=== PATIENT | male | born 1985 | race Caucasian/White ===

== ENCOUNTER 2017-07-17 18:10 | Emergency (ER) | payer OTHER, MEDICAID ==
[~2017-07-17] VITALS: Ht 172.7 cm; Wt 95.3 kg
[~2017-07-17 18:10] MED LIST: METO50TA69 PO; [UNRECOGNIZED DRUG - CODE] PO
[2017-07-17 18:30] VITALS: BP 148/92
--- NOTE | 2017-07-17 18:45 | NUR ---
Patient was taken to bed 03 via wheelchair per tech.
--- NOTE | 2017-07-17 18:56 | NUR ---
PATIENT PRESENTS TO THE ED C/O RIGHT HIP PAIN. PT STATES, "I GOT UP TO WALK AND IT STARTED TO HURT." PT STATES OF A SHARP PAIN THAT RADIATES DOWN THE LEG, STATES A 6/10. PT STATES THAT STARTED X4 HOURS AGO. REPORTED DIARRHEA SYMPTOMS LAST NIGHT. PATIENT REPORTS PAST MEDICAL HISTORY OF HYPERTENSION AND IS CURRENTLY ON DIALYSIS. PATIENT AAOX4, RR EVEN AND UNLABORED. PATIENT REPOSITIONED FOR COMFORT. BED PUT IN LOWEST POSITION. ER MD DR. BYNUM NOTIFIED. WILL CONTINUE TO MONITOR.
--- NOTE | 2017-07-17 19:15 | NUR ---
Pt report given to CLARICE BRANDON. Transfer of care at this time.
--- NOTE | 2017-07-17 19:20 | NUR ---
ASSUMED CARE. RECEIVED ALERT,NOT IN ACUTE DISTRESS. DENIES ANY PAIN OR DISCOMFORT AT THIS TIME. VERBALIZED PAIN ON RANGE OF MOTION AND WEIGHT BEARING. AWAITING ER-MD EVALUATION.
--- NOTE | 2017-07-17 19:28 | NUR ---
MD CAME AT BEDSIDE TO EVALUATE PATIENT.
--- NOTE | 2017-07-17 19:40 | NUR ---
Patient discharged with v/s stable. Written and verbal after care instructions given and explained. Patient alert, oriented and verbalized understanding of instructions. Wheel Chair Assisted with by caregiver. All questions addressed prior to discharge. ID band removed. Patient advised to follow up with PMD. Rx of AUGMENTIN,SOMA,NAPROSYN given. Patient educated on indication of medication including possible reaction and side effects. Opportunity to ask questions provided and answered.
[2017-07-17 19:56] VITALS: BP 164/103
== END 2017-07-17 19:40 | disposition home or self-care (01) ==
LOC: MED 18:10
DX: M54.41 Lumbago with sciatica, right side (principal); J06.9 Acute upper respiratory infection, unspecified; I10 Essential (primary) hypertension; I12.0 Hypertensive chronic kidney disease with stage 5 chronic kidney disease or end stage renal disease; N18.6 End stage renal disease
CPT/HCPCS: 99283

== ENCOUNTER 2017-08-06 14:42 | Emergency (ER) | payer OTHER, MEDICAID ==
[~2017-08-06] VITALS: Ht 172.7 cm; Wt 108.9 kg
[~2017-08-06 14:42] MED LIST changes: +METO50TA20 PO; -METO50TA69 PO
--- NOTE | 2017-08-06 15:03 | NUR ---
PT TRANSFERRED TO BED 6.
--- NOTE | 2017-08-06 15:04 | NUR ---
Patient being evaluated by DR. GRIFFITHS at bedside.
--- NOTE | 2017-08-06 15:13 | NUR ---
PATIENT BIB FAMILY C/O NERVE PAIN TO LEFT UPPER LEG AFTER GETTING UP IN THE MORNING. DX OF SIATIC NERVE PAIN TO RIGHT SIDE 3 WKS AGO.HX OF DIALYSIS, HTN, KIDNEY PROBLEMS.DENIES N/V/D; SKIN IS PINK/WARM/DRY; AAOX4; LUNGS CLEAR BL; HR EVEN AND REGULAR; PT DENIES ANY FEVER, CP, SOB, OR COUGH AT THIS TIME;PATIENT POSITIONED FOR COMFORT; HOB ELEVATED; BEDRAILS UP X2; BED DOWN. ER MD MADE AWARE OF PT STATUS.
[2017-08-06] MEDS ORDERED: ONDANSETRON 4 MG/2 ML VIAL IVP ONE (15:20)
[2017-08-06] MEDS ORDERED: MORPHINE SULFATE 4 MG/ML SYR IVP ONE ×2 (15:20→16:35)
[2017-08-06] MEDS ORDERED: KETOROLAC 30 MG/ML VIAL IVP ONE (15:20)
[2017-08-06 15:45] LABS: BASOPHILS % (AUTO) 1.4 % (0.0-2.0); EOSINOPHILS # (AUTO) 0.2 K/uL (0-0.4); MONOCYTES # (AUTO) 0.6 K/uL (0.8-1.0)
[2017-08-06 15:51] LABS: BASOPHILS # (AUTO) 0.1 K/uL (0.00-0.22); EOSINOPHILS % (AUTO) 1.7 % (0.0-4.0); HEMATOCRIT 40.4 % (36-52); HEMOGLOBIN 13.1 g/dL (12.0-18.0); LYMPHOCYTES # (AUTO) 0.9 K/uL (2.0-11.5); LYMPHOCYTES % (AUTO) 8.4 % (20.5-51.1); MEAN CORPUSCULAR HEMOGLOBIN 30 pg (27-31); MEAN CORPUSCULAR HGB CONC 33 g/dL (33-37); MEAN CORPUSCULAR VOLUME 93 fL (80-94); MONOCYTES % (AUTO) 5.5 % (1.7-9.3); NEUTROPHILS # (AUTO) 8.7 K/uL (1.8-7.7); PLATELET COUNT (AUTO) 128 K/uL (140-450); RED BLOOD CELL COUNT(AUTO) 4.33 MIL/uL (4.20-6.10); RED CELL DISTRIBUTION WIDTH 15.8 % (11.6-13.7); WHITE BLOOD COUNT (AUTO) 10.5 K/uL (4.8-10.8)
[2017-08-06 16:05] LABS: PROTHROMBIN TIME 10.4 secs (10.8-13.4)
--- NOTE | 2017-08-06 16:08 | NUR ---
PT TO CT VIA GURVEY ACCOMPANIED BY WINDOWS AND DOORS INSTALLER
[2017-08-06 16:19] LABS: ALBUMIN 3.8 g/dL (3.4-5.0); ANION GAP 19.1 (8-16); CARBON DIOXIDE 28.2 mmol/L (21-32); POTASSIUM 4.3 mmol/L (3.5-5.1); TOTAL BILIRUBIN 0.6 mg/dL (0.0-1.0)
[2017-08-06 16:21] LABS: CREATININE 9.4 mg/dL (0.7-1.3)
--- NOTE | 2017-08-06 16:25 | NUR ---
BACK FROM CT SCAN ACCOMPANIED BY TECH
--- NOTE | 2017-08-06 16:29 | NUR ---
PT STILL C/O LEG PAIN;ER MD NOTIFIED;AWAITING NEW ORDER.
[2017-08-06] MEDS ORDERED: LABETALOL 100 MG/20 ML VIAL IVP ONE (17:10)
--- NOTE | 2017-08-06 17:57 | NUR ---
XRAY AT BEDSIDE.
--- NOTE | 2017-08-06 18:25 | NUR ---
PT RESTING ON BED;BP WENT DOWN TO 135/84;NO ACUTE DSITRESS NOTED;WILL CONTINUE TO MONITOR PT.
--- NOTE | 2017-08-06 18:29 | NUR ---
16 ML OF LABETALOL WAS WASTED IN THE PHARMACEUTICAL BIN.
[2017-08-06] MEDS ORDERED: HYDROmorphone 1 MG/ML AMP IVP ONE (18:40)
--- NOTE | 2017-08-06 18:54 | NUR ---
PT IS TO BE TRANSFERED TO [facility];PT RESTING ON BED; NO ACUTE DISTRESS NOTED;WILL CONTINUE TO MONITOR PT.
--- NOTE | 2017-08-06 19:26 | NUR ---
TRIED TO CALL [facility] 2X;THEY PUT ME IN HOLD BECUASE THEY ARE BUSY AT THE MOMENT;WILL CALL AGAIN LATER.
--- NOTE | 2017-08-06 19:27 | NUR ---
Pt report given to CLARICE VALENTINE AND CLARICE CASTRO. Transfer of care at this time.
--- NOTE | 2017-08-06 20:03 | NUR ---
CALLED REPORT TO [facility]. SPOKE TO ZOEY MCNEAL RN. ETA [facility] 30-40MINS. Patient appears to be resting comfortably in bed. Vital Signs within normal limits. Respirations even and unlabored.
--- NOTE | 2017-08-06 22:20 | NUR ---
Patient transferred to [facility] ER. Receiving facility has accepting physician and available space. ER physician has signed transfer form. Patient or responsible libertarian has agreed to transfer and signed form. Patient belongings inventoried and will be sent with patient. Copy of nursing notes, lab reports, EKG, Physicians Orders and X-rays to be sent with patient. Report called to ZOEY ONEIL at receiving facility.
[2017-08-06 22:25] VITALS: BP 168/98
== END 2017-08-06 22:20 | disposition short-term general hospital (02) ==
LOC: MED 14:42
DX: M84.459A Pathological fracture, hip, unspecified, initial encounter for fracture (principal); I12.0 Hypertensive chronic kidney disease with stage 5 chronic kidney disease or end stage renal disease; N18.6 End stage renal disease; Z79.899 Other long term (current) drug therapy
CPT/HCPCS: 36415; 72131; 72192; 73502; 80053; 82948; 83605; 85025; 85610; 85651; 85730; 87040; 93005; 96374; 96375; 96376; 99285; J1170; J1885; J2270; J2405; J3490; Q0092